=== PATIENT | female | born 1995 | race Caucasian/White ===

== ENCOUNTER 2016-03-16 01:32 | Emergency (ER) | payer BC, OTHER ==
[~2016-03-16] VITALS: Ht 154.9 cm; Wt 49.7 kg
[~2016-03-16 01:32] MED LIST: NF406 PO
[2016-03-16 01:36] VITALS: TEMP 36.4; Ht 154.9 cm; Wt 49.7 kg
[2016-03-16] MEDS ORDERED: KETOROLAC TROMETHAMINE 30 MG/ML VIAL IV STA (01:50)
[2016-03-16] MEDS ORDERED: ONDANSETRON INJ 2 MG/ML 2 ML VIAL IV STA (01:50)
[2016-03-16] MEDS ORDERED: DiphenhydrAMINE HCL 50 MG/ML VIAL IV STA (01:50)
[2016-03-16] MEDS ORDERED: SODIUM CHLORIDE 0.9% 1000ML 1,000 ML IV STA (01:50)
--- NOTE | 2016-03-16 01:52 | EMERGENCY ROOM VISIT NOTE ---
History Report prepared by Ree: Inocencia Hagan Under the Supervision of: Dr. Kenny Ya M.D. First contact with patient: 01:41 Chief Complaint: PAIN (GENERALIZED) Stated Complaint: LT LEG GOES NUMB, RT SIDE,BACK,ABD PAIN,NEGRETE,NECK PN History of Present Illness The patient is a 20 year old female who presents to the Emergency Room with complaints of constant left leg numbness beginning 1 week ago. The patient complains of lower back pain, right sided abdominal pain beginning 3 days ago, vomiting, loss of appetite, headache for 3 days, nausea, congestion in the morning, and sneezing. She denies any fever and loss of consciousness. The patient notes that she works at [employer] and there are people that are sick there. She reports that she has been doing heavy lifting and has no past history of sciatica. The patient states that her last menstrual period lasted for 3 weeks and was abnormally heavy and she did not have it for 2 weeks but got it again today. She notes that it has been 4 months since she had sex. Source of History: patient Onset: 1 week ago Position: leg (left) Quality: numbness Timing: constant Associated Symptoms: + abdominal pain, + back pain, + headache, + nausea, + vomiting, No LOC, No fevers Note: The patient complains of congestion in the morning, loss of appetite, and sneezing. Review of Systems See HPI for pertinent positives & negatives. A total of 10 systems reviewed and were otherwise negative. Past Medical & Surgical Medical Problems: (1) Abdominal cramping (2) Diarrhea (3) Nausea (4) Nausea and vomiting (5) Sinusitis (6) Sinusitis (7) UTI (lower urinary tract infection) Family History Patient reports no known family medical history. Social History Smoking Status: Never Smoker Marital Status: single Housing Status: lives with family Occupation Status: student Current/Historical Medications No Active Prescriptions or Reported Meds Allergies Coded Allergies: No Known Allergies (Unverified , 08/09/15) Physical Exam Vital Signs Date Time Temp Pulse Resp B/P Pulse Ox O2 Delivery O2 Flow Rate FiO2 03/16/16 03:33 63 18 104/62 100 03/16/16 01:36 36.4 85 16 125/78 100 Room Air Physical Exam GENERAL: Patient is well appearing and in minimal distress. HEENT: No acute trauma, normocephalic atraumatic, mucous membranes moist, no nasal congestion, no scleral icterus. NECK: No stridor, no adenopathy, no meningismus, trachea is midline. LUNGS: No dyspnea. Clear to auscultation and equal bilaterally. No wheeze, no rhonchi. HEART: Regular rate and rhythm. No murmurs, rubs, gallops appreciated. ABDOMEN: Soft, nontender, bowel sounds positive, no masses appreciated, no peritonitis. BACK: No midline tenderness, no CVA tenderness EXTREMITIES: Normal motion all extremities, no cyanosis, no edema. NEUROLOGIC: Alert and oriented, no acute motor or sensory deficits, no focal weakness, cranial nerves grossly intact. SKIN: No rash, no jaundice, no diaphoresis. Medical Decision & Procedures Laboratory Results 03/16/16 02:00 Red Blood Count 4.40, Mean Corpuscular Volume 90.2, Mean Corpuscular Hemoglobin 32.0, Mean Corpuscular Hemoglobin Concent 35.5, Mean Platelet Volume 10.8, Neutrophils (%) (Auto) 56.8, Lymphocytes (%) (Auto) 32.5, Monocytes (%) (Auto) 9.1, Eosinophils (%) (Auto) 1.2, Basophils (%) (Auto) 0.3, Neutrophils # (Auto) 3.86, Lymphocytes # (Auto) 2.21, Monocytes # (Auto) 0.62, Eosinophils # (Auto) 0.08, Basophils # (Auto) 0.02 03/16/16 02:00 Test 03/16/16 02:00 03/16/16 02:28 White Blood Count 6.80 K/uL (4.8-10.8) Red Blood Count 4.40 M/uL (4.2-5.4) Hemoglobin 14.1 g/dL (12.0-16.0) Hematocrit 39.7 % (37-47) Mean Corpuscular Volume 90.2 fL (80-100) Mean Corpuscular Hemoglobin 32.0 pg (25-34) Mean Corpuscular Hemoglobin Concent 35.5 g/dl (32-36) Platelet Count 196 K/uL (130-400) Mean Platelet Volume 10.8 fL (7.4-10.4) Neutrophils (%) (Auto) 56.8 % Lymphocytes (%) (Auto) 32.5 % Monocytes (%) (Auto) 9.1 % Eosinophils (%) (Auto) 1.2 % Basophils (%) (Auto) 0.3 % Neutrophils # (Auto) 3.86 K/uL (1.4-6.5) Lymphocytes # (Auto) 2.21 K/uL (1.2-3.4) Monocytes # (Auto) 0.62 K/uL (0.11-0.59) Eosinophils # (Auto) 0.08 K/uL (0-0.5) Basophils # (Auto) 0.02 K/uL (0-0.2) RDW Standard Deviation 41.1 fL (36.4-46.3) RDW Coefficient of Variation 12.4 % (11.5-14.5) Immature Granulocyte % (Auto) 0.1 % Immature Granulocyte # (Auto) 0.01 K/uL (0.00-0.02) Anion Gap 8.0 mmol/L (3-11) Est Creatinine Clear Calc Drug Dose 82.5 ml/min Estimated GFR () 119.4 Estimated GFR (Non- 103.0 BUN/Creatinine Ratio 8.2 (10-20) Calcium Level 9.0 mg/dl (8.5-10.1) Total Bilirubin 0.3 mg/dl (0.2-1) Direct Bilirubin < 0.1 mg/dl (0-0.2) Aspartate Amino Transf (AST/SGOT) 13 U/L (15-37) Alanine Aminotransferase (ALT/SGPT) 18 U/L (12-78) Alkaline Phosphatase 72 U/L (45-117) Total Protein 7.7 gm/dl (6.4-8.2) Albumin 4.4 gm/dl (3.4-5.0) Lipase 118 U/L (73-393) Urine Color YELLOW Urine Appearance CLEAR (CLEAR) Urine pH 7.5 (4.5-7.5) Urine Specific [place] 1.000 (1.000-1.030) Urine Protein NEG (NEG) Urine Glucose (UA) NEG (NEG) Urine Ketones NEG (NEG) Urine Occult Blood NEG (NEG) Urine Nitrite NEG (NEG) Urine Bilirubin NEG (NEG) Urine Urobilinogen NEG (NEG) Urine Leukocyte Esterase MODERATE (NEG) Urine WBC (Auto) 5-10 /hpf (0-5) Urine RBC (Auto) 0-4 /hpf (0-4) Urine Hyaline Casts (Auto) 0 /lpf (0-5) Urine Epithelial Cells (Auto) 10-20 /lpf (0-5) Urine Bacteria (Auto) NEG (NEG) Urine Test NEG (NEG) Laboratory results as reviewed by me. Medications Administered Medications (Trade) Dose Ordered Sig/Martine Route Start Time Stop Time Status Last Admin Dose Admin Ketorolac Tromethamine (Toradol Inj) 30 mg NOW STAT IV 03/16/16 01:50 03/16/16 01:51 DC 03/16/16 02:05 30 MG Diphenhydramine HCl (Benadryl Inj) 25 mg NOW STAT IV 03/16/16 01:50 03/16/16 01:51 DC 03/16/16 02:05 25 MG Ondansetron HCl (Zofran Inj) 4 mg NOW STAT IV 03/16/16 01:50 03/16/16 01:51 DC 03/16/16 02:04 4 MG Dexamethasone Sodium Phosphate 10 mg 10 mg NOW ONCE IV 03/16/16 02:00 03/16/16 02:01 DC 03/16/16 02:05 10 MG Sodium Chloride (Nss 1000ml) 1,000 ml @ 999 mls/hr Q1H1M STAT IV 03/16/16 01:50 03/16/16 02:50 DC 03/16/16 02:04 999 MLS/HR ED Course 0141: The patient was evaluated in room A11. A complete history and physical exam was performed. 0150: Sodium Chloride 1000 ml @ 999 mls/hr, Zofran Inj 4mg IV, Benadryl 25mg IV , Toradol Inj 30mg IV. 0200: Decadron Inj 10mg IV. 0307: I reevaluated the patient and she is feeling much better. 0315: Promethazine HCl 1 homepack PO, Cyclobenzaprine HCl 1 homepack PO. 0317: Reevaluated the patient. Discussed results and discharge instructions: She verbalized understanding and agreement. The patient is ready for discharge. Medical Decision Differential: Viral, Sciatica, Pharyngitis, Cellulitis, Pneumonia, Influenza, Meningitis, Sepsis, Bacteremia, UTI/Pyelonephritis, Endocrine, Toxicologic, amongst other pathologies entertained. 20 yr old female with essentially 3 different complaints... left lower back pain radiating down left leg. 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 No neuro deficits. No loss bowel/bladder function. Consistent with sciatica and will try NSAIDs along with single dose decadron here. Given flexeril for PRN. Rest for next 48 hours and then gradual return to use. RLQ pain. More right lateral mid pain which is non-surgical with normal WBC no fevers, no current vomiting, and no rebound. Seems likely gastroenteritis and with findings I do not feel that she requires immediate CT as risks outweigh benefits at this time. Headache: Associated with URI symptoms. She has no ROM issues with neck. She does not have meningitis. She has resolution of symptoms with above. I do not feel that this requires emergent imaging nor LP at this times. Discussed if worsening of any symptoms, high fevers, or other concerns RTED for further evaluation. Impression Primary Impression: Abdominal discomfort in right flank Additional Impressions: URI (upper respiratory infection) Low back pain with left-sided sciatica Scribe Attestation The scribe's documentation has been prepared under my direction and personally reviewed by me in its entirety. I confirm that the note above accurately reflects all work, treatment, procedures, and medical decision making performed by me. Departure Information Dispostion Home / Self-Care Prescriptions No Active Prescriptions or Reported Meds Referrals Viktoriya Doss D.O. (PCP) Forms HOME CARE DOCUMENTATION FORM, IMPORTANT VISIT INFORMATION, WORK / SCHOOL INSTRUCTIONS Patient Instructions ED Sciatica, [facility] Problem Qualifiers Additional Impressions: URI (upper respiratory infection) URI type: unspecified viral URI Qualified Codes: J06.9 - Acute upper respiratory infection, unspecified; B97.89 - Other viral agents as the cause of diseases classified elsewhere Low back pain with left-sided sciatica Chronicity: acute Back pain laterality: left Qualified Codes: M54.42 - Lumbago with sciatica, left side
[2016-03-16] MEDS ORDERED: DEXAMETHASONE SOD INJ 10 MG/ML VIAL IV ONE (02:00)
[2016-03-16 02:17] LABS: BASO % 0.3 %; BASO ABS # 0.02 K/uL (0-0.2); COMPLETE YES; EOS % 1.2 %; HEMATOCRIT 39.7 % (37-47); IG% 0.1 %; LYMPH % 32.5 %; LYMPH ABS # 2.21 K/uL (1.2-3.4); MEAN CELL VOLUME 90.2 fL (80-100); MEAN CORPUSCULAR HGB CONC 35.5 g/dl (32-36); MEAN PLATELET VOLUME 10.8 fL (7.4-10.4); MONO % 9.1 %; NEUT % 56.8 %; PLATELET COUNT 196 K/uL (130-400)
[2016-03-16 02:33] LABS: ALT/SGPT 18 U/L (12-78); AST/SGOT 13 U/L (15-37); BLOOD UREA NITROGEN 7 mg/dl (7-18); BUN/CREATININE RATIO 8.2 (10-20); CARBON DIOXIDE 30 mmol/L (21-32); CHLORIDE 107 mmol/L (98-107); CREATININE 0.82 mg/dl (0.60-1.20); GLUCOSE 96 mg/dl (70-99); POTASSIUM 3.5 mmol/L (3.5-5.1); SODIUM 145 mmol/L (136-145)
[2016-03-16 02:36] LABS: ALKALINE PHOSPHATASE 72 U/L (45-117)
[2016-03-16 02:48] LABS: URINE APPEARANCE CLEAR (CLEAR); URINE BILIRUBIN NEG (NEG); URINE COLOR YELLOW; URINE NITRITE NEG (NEG); URINE PH 7.5 (4.5-7.5); UROBILINOGEN NEG (NEG); ZZUR CULT IF INDIC CLEAN CATCH NO
[2016-03-16 02:49] LABS: MANUAL MICROSCOPIC REQUIRED? NO; REVIEW REQ? NO
[2016-03-16] MEDS ORDERED: PHENERGAN 25MG HOMEPACK PO ONE (03:15)
[2016-03-16] MEDS ORDERED: FLEXERIL HOME PACK 10 MG VIAL PO ONE (03:15)
[2016-03-16 03:33] VITALS: BP 104/62; PULSE 63; O2SAT 100
== END 2016-03-16 03:16 | disposition home or self-care (01) ==
LOC: C.EDB 01:35 → C.EDA 03:16
DX: R10.9 Unspecified abdominal pain (principal); J06.9 Acute upper respiratory infection, unspecified; B97.89 Other viral agents as the cause of diseases classified elsewhere; M54.42 Lumbago with sciatica, left side

== ENCOUNTER 2017-09-29 06:14 | Emergency (ER) | payer BC ==
[~2017-09-29] VITALS: Ht 154.9 cm; Wt 56.0 kg
[~2017-09-29 06:14] MED LIST changes: +BCPILLS PO; +IBUP-1451 PO; -NF406 PO
[2017-09-29 06:16] VITALS: Ht 154.9 cm; Wt 56.0 kg
--- NOTE | 2017-09-29 06:31 | EMERGENCY ROOM VISIT NOTE ---
ED Visit Note First contact with patient: 06:30 Resident Physician Supervision Note: I interviewed and examined the patient. Discussed with Dr. Camara and agree with findings and plan as documented in the note. Documented By: Ulises Rader Problem List Medical Problems: (1) Abdominal cramping Status: Resolved (2) Diarrhea Status: Resolved (3) Nausea Status: Resolved (4) Nausea and vomiting Status: Resolved (5) Sinusitis Status: Resolved (6) Sinusitis Status: Resolved (7) UTI (lower urinary tract infection) Status: Resolved Current/Historical Medications Scheduled Control Pills ( Control Pills), 1 TAB PO DAILY Scheduled PRN Ibuprofen Tab (Motrin), 800 MG PO Q8H PRN for Pain Allergies Coded Allergies: No Known Allergies (Unverified , 07/18/17) Vital Signs Date Time Temp Pulse Resp B/P (MAP) Pulse Ox O2 Delivery O2 Flow Rate FiO2 09/29/17 06:16 37.2 115 22 127/87 98 Room Air Departure Information Referrals No Doctor, Assigned (PCP) Patient Instructions [facility]
[2017-09-29] MEDS ORDERED: SODIUM CHLORIDE 0.9% 1000ML 1,000 ML IV STA (06:48)
[2017-09-29] MEDS ORDERED: KETOROLAC TROMETHAMINE 30 MG/ML VIAL IV STA (06:48)
[2017-09-29] MEDS ORDERED: ALBUTEROL 0.083% NEBU SOLN 3 ML VIAL INH STA (06:48)
--- NOTE | 2017-09-29 06:55 | EMERGENCY ROOM VISIT NOTE ---
History First contact with patient: 06:22 Chief Complaint: ILLNESS Stated Complaint: FEVER, WEAK, SORE THROAT, BACK PAIN History of Present Illness The patient is a 21 year old female with no significant PMHx who presents to the Emergency Room with complaints of fever and cough x 6 days, she is measuring her temperature at home and has reached 103F via forehead thermometer. She had one episode of loose non bloody stools yesterday and some dry heaving. She states she had a rapid strep test on Wednesday which was negative. She states that her throat is constantly sore as well. Pt is a [employer] for [employer] in [place], she works in a [employer]. Pt tried taking Tylenol when her illness started but stopped when it didn't help. She is also taking THERAFLU. Pt denies any sick contacts. She is present with her father who confirms the history. She does not have a history of asthma. She states she does smoke cigarettes but "only when she drinks" - she has not had any cigarettes or alcohol for the duration of her illness. PMHx: Recent ovarian cyst with resolving but chronic intermittent abdominal pain. HTN (per intake form - not verbalized to me) Meds: OCPs SHX: no partner, LMP was one week ago. ROS: No hemoptysis, no abdominal pain. No rashes. No recent tick bites. Review of Systems See HPI for pertinent positives and negatives. A total of ten systems were reviewed and were otherwise negative. Constitutional: + fever, + weakness, No chills, No weight loss, No fatigue Eyes: No worsening of vision ENT: No hearing loss Respiratory: + cough, No sputum, No wheezing, No shortness of breath Cardiovascular: No chest pain, No edema, No palpitations Abdomen: + nausea, + vomiting, + diarrhea, No pain Musculoskeletal: No joint pain Genitourinary - Female: + problem reported (had hematuria), No dysuria, No urinary frequency, No urinary urgency Neurologic: No memory loss, No numbness/tingling Endocrine: No fatigue Integumentary: No rash Past Medical/Surgical History Medical Problems: (1) Abdominal cramping (2) Diarrhea (3) Nausea (4) Nausea and vomiting (5) Sinusitis (6) Sinusitis (7) UTI (lower urinary tract infection) Family History Hypertension Stroke Social History Smoking Status: Current Some Day Smoker Marital Status: single Housing Status: lives with family Occupation Status: employed Current/Historical Medications Scheduled Control Pills ( Control Pills), 1 TAB PO DAILY Scheduled PRN Ibuprofen Tab (Motrin), 800 MG PO Q8H PRN for Pain Physical Exam Vital Signs Date Time Temp Pulse Resp B/P (MAP) Pulse Ox O2 Delivery O2 Flow Rate FiO2 09/29/17 06:16 37.2 115 22 127/87 98 Room Air Physical Exam Gen: No acute distress. HEENT: Head - normocephalic and atraumatic. Pupils are equal, round, and reactive to light. Extraocular eye muscles are intact and sclera are anicteric. Ears - bilaterally patent canals with noninjected tympanic membranes and no evidence of hemotympanum. Nose - moist nasal mucosa without discharge. Mouth - moist buccal mucosa. Oropharynx is nonerythematous and there is no tonsillar exudate or edema noted. There is submandibular lymphadenopathy bilaterally. Neck: Supple; no JVD, nuchal rigidity, cervical lymphadenopathy, or auscultated bruits. Heart: Regular rate and rhythm. There is a normal S1 and S2 with no murmurs, clicks, or gallops appreciated. Lungs: Clear to auscultation bilaterally with no wheezes, rales, or rhonchi. Abdomen: Soft, completely nontender, nondistended, with good bowel sounds. There are no palpable pulsatile masses or hepatosplenomegaly. There is no guarding, rigidity, or rebound noted. Extremities: No evidence of cyanosis, clubbing, or edema. There are easily palpable peripheral pulses. Neuro:The patient is awake and alert, oriented to day, time, and place. Muscle strength is 5/5 in all 4 extremities. 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 There are no cerebellar signs. Medical Decision & Procedures Laboratory Results 09/29/17 07:00 Red Blood Count 4.52, Mean Corpuscular Volume 90.7, Mean Corpuscular Hemoglobin 31.2, Mean Corpuscular Hemoglobin Concent 34.4, Mean Platelet Volume 10.9, Neutrophils (%) (Auto) 76.6, Lymphocytes (%) (Auto) 11.4, Monocytes (%) (Auto) 11.0, Eosinophils (%) (Auto) 0.6, Basophils (%) (Auto) 0.2, Neutrophils # (Auto ) 9.72, Lymphocytes # (Auto) 1.45, Monocytes # (Auto) 1.39, Eosinophils # (Auto ) 0.07, Basophils # (Auto) 0.02 09/29/17 07:00 Test 09/29/17 07:00 09/29/17 07:10 White Blood Count 12.68 K/uL (4.8-10.8) Red Blood Count 4.52 M/uL (4.2-5.4) Hemoglobin 14.1 g/dL (12.0-16.0) Hematocrit 41.0 % (37-47) Mean Corpuscular Volume 90.7 fL (80-100) Mean Corpuscular Hemoglobin 31.2 pg (25-34) Mean Corpuscular Hemoglobin Concent 34.4 g/dl (32-36) Platelet Count 207 K/uL (130-400) Mean Platelet Volume 10.9 fL (7.4-10.4) Neutrophils (%) (Auto) 76.6 % Lymphocytes (%) (Auto) 11.4 % Monocytes (%) (Auto) 11.0 % Eosinophils (%) (Auto) 0.6 % Basophils (%) (Auto) 0.2 % Neutrophils # (Auto) 9.72 K/uL (1.4-6.5) Lymphocytes # (Auto) 1.45 K/uL (1.2-3.4) Monocytes # (Auto) 1.39 K/uL (0.11-0.59) Eosinophils # (Auto) 0.07 K/uL (0-0.5) Basophils # (Auto) 0.02 K/uL (0-0.2) RDW Standard Deviation 42.0 fL (36.4-46.3) RDW Coefficient of Variation 12.7 % (11.5-14.5) Immature Granulocyte % (Auto) 0.2 % Immature Granulocyte # (Auto) 0.03 K/uL (0.00-0.02) Anion Gap 5.0 mmol/L (3-11) Est Creatinine Clear Calc Drug Dose 71.4 ml/min Estimated GFR () 100.5 Estimated GFR (Non- 86.7 BUN/Creatinine Ratio 6.7 (10-20) Lactic Acid Level 0.7 mmol/L (0.4-2.0) Calcium Level 9.1 mg/dl (8.5-10.1) Total Bilirubin 0.5 mg/dl (0.2-1) Aspartate Amino Transf (AST/SGOT) 14 U/L (15-37) Alanine Aminotransferase (ALT/SGPT) 20 U/L (12-78) Alkaline Phosphatase 99 U/L (45-117) C-Reactive Protein 1.86 mg/dl (0-0.29) Total Protein 8.1 gm/dl (6.4-8.2) Albumin 3.9 gm/dl (3.4-5.0) Globulin 4.2 gm/dl (2.5-4.0) Albumin/Globulin Ratio 0.9 (0.9-2) Monoscreen NEG (NEG) Influenza Type A Antigen Neg for Influ A (NEG) Influenza Type B Antigen Neg for Influ B (NEG) Urine Color YELLOW Urine Appearance CLEAR (CLEAR) Urine pH 7.0 (4.5-7.5) Urine Specific [place] 1.005 (1.000-1.030) Urine Protein NEG (NEG) Urine Glucose (UA) NEG (NEG) Urine Ketones NEG (NEG) Urine Occult Blood NEG (NEG) Urine Nitrite NEG (NEG) Urine Bilirubin NEG (NEG) Urine Urobilinogen NEG (NEG) Urine Leukocyte Esterase NEG (NEG) Medications Administered Medications (Trade) Dose Ordered Sig/Martine Route Start Time Stop Time Status Last Admin Dose Admin Ketorolac Tromethamine (Toradol Inj) 15 mg NOW STAT IV 09/29/17 06:48 09/29/17 06:51 DC 09/29/17 07:07 15 MG Sodium Chloride 1,000 ml @ 999 mls/hr Q1H1M STAT IV 09/29/17 06:48 09/29/17 07:48 DC 09/29/17 07:06 999 MLS/HR Albuterol Sulfate (Ventolin 0.083% 2.5MG/3ML Neb) 2.5 mg NOW STAT INH 09/29/17 06:48 09/29/17 06:51 DC 09/29/17 07:06 2.5 MG Medical Decision The patient's care and disposition was discussed with Dr. Rader, Attending ED Physician. This is a 21F with fever and cough. Differential diagnosis include viral syndrome, otitis, pharyngitis, pneumonia, influenza, meningitis, urinary tract infection, sepsis, bacteremia, as well as others were entertained. Triage Nursing notes were reviewed. ED Course included an extensive history and physical exam, labs, chest X-ray, monospot test. 6:30 - Pt examined at bedside. Pt was offered rapid strep test but declined. 6:45 - Case discussed with Dr. Rader and initial orders were placed. Pt was ordered 15mg IV Toradol, 1 L bolus NSS and a Duoneb treatment. 7:15 - Lab results were reviewed with Attending. 7:30 - Results were reviewed with patient. Labs and imaging consistent with a febrile illness. We recommend rest, hydration and Ibuprofen (up to 600mg TID PRN for pain). Pt will be given a work excuse so she can rest. The pt was informed about the findings as listed above. All questions were answered. Return instructions were outlined and the patient was discharged in good condition. The patient was referred to PCP for recheck of the current condition. Head Trauma GCS Score: 15 Impression Primary Impression: Acute febrile illness Departure Information Dispostion Home / Self-Care Condition GOOD Referrals No Doctor, Assigned (PCP) Patient Instructions My [facility] Resident Involvement: Resident Care Provided Care Provided: Pediatric Care ED
[2017-09-29 07:11] LABS: BASO % 0.2 %; BASO ABS # 0.02 K/uL (0-0.2); EOS % 0.6 %; EOS ABS # 0.07 K/uL (0-0.5); HEMOGLOBIN 14.1 g/dL (12.0-16.0); IG# 0.03 K/uL (0.00-0.02); LYMPH % 11.4 %; LYMPH ABS # 1.45 K/uL (1.2-3.4); MEAN CELL VOLUME 90.7 fL (80-100); MEAN CORPUSCULAR HEMOGLOBIN 31.2 pg (25-34); MEAN CORPUSCULAR HGB CONC 34.4 g/dl (32-36); MEAN PLATELET VOLUME 10.9 fL (7.4-10.4); MONO ABS # 1.39 K/uL (0.11-0.59); NEUT % 76.6 %; NEUT ABS # 9.72 K/uL (1.4-6.5); PLATELET COUNT 207 K/uL (130-400); RED CELL DISTRIBUTION WIDTH CV 12.7 % (11.5-14.5); WHITE BLOOD COUNT 12.68 K/uL (4.8-10.8)
[2017-09-29 07:50] LABS: ALBUMIN 3.9 gm/dl (3.4-5.0); CALCIUM 9.1 mg/dl (8.5-10.1); CREATININE 0.94 mg/dl (0.60-1.20); POTASSIUM 3.5 mmol/L (3.5-5.1); TOTAL PROTEIN 8.1 gm/dl (6.4-8.2)
[2017-09-29 07:51] LABS: INFLUENZA B ANTIGEN Neg for Influ B (NEG)
--- NOTE | 2017-09-29 08:01 | DIAGNOSTIC IMAGING REPORT ---
CHEST ONE VIEW PORTABLE CLINICAL HISTORY: 21 years-old Female presenting with cough. TECHNIQUE: Portable upright AP view of the chest was obtained. COMPARISON: 01/13/2015. FINDINGS: Cardiomediastinal silhouette normal. Lungs and pleural spaces clear. Osseous structures normal. Upper abdomen normal. IMPRESSION: 1. No acute cardiopulmonary disease. Electronically signed by: Timmy Licea M.D. 09/29/2017 8:00 AM Dictated Date/Time: 09/29/2017 7:28 AM
[2017-09-29 08:18] VITALS: BP 130/70; PULSE 102; TEMP 37.1; O2SAT 98
[2017-09-30 12:43] LABS: EBV EARLY ANTIGEN AB < 9.00 U/ML
== END 2017-09-29 08:18 | disposition home or self-care (01) ==
LOC: C.EDB 06:15
DX: R50.9 Fever, unspecified (principal); R05 Cough; R19.7 Diarrhea, unspecified; R07.0 Pain in throat; R59.0 Localized enlarged lymph nodes; I10 Essential (primary) hypertension; Z72.0 Tobacco use; Z79.3 Long term (current) use of hormonal contraceptives